=== PATIENT | male | born 1995 | race African-American/Black ===

== ENCOUNTER 2019-11-05 20:24 | Inpatient (IN) | payer SELFPAY ==
--- NOTE | 2019-11-05 21:17 | ER Document Report ---
ED Medical Screen (RME) - General Chief Complaint: Constipation Stated Complaint: CONSTIPATION,VOMITING Time Seen by Provider: 11/05/19 21:08 Notes: Patient is an 23-year-old male who presents emergency department with a chief complaint of constipation and abdominal pain. For the past few days he has had some abdominal pain in his entire abdomen. Patient has also been vomiting. He was vomiting in the waiting room and then he developed some chest pain. Patient is an everyday drinker. He admits to some tarry stools recently. Patient also states that he sometimes has hematemesis, but this has been going on for the past 6 months. Exam: Tender mid to left upper abdomen. I have greeted and performed a rapid initial assessment of this patient. A comprehensive ED assessment and evaluation of the patient, analysis of test results and completion of medical decision making process will be conducted by an additional ED providers. TRAVEL OUTSIDE OF THE [place] IN LAST 30 DAYS: No - Related Data Allergies/Adverse Reactions: No Known Allergies Allergy (Unverified 11/05/19 21:14) Home Medications: none Past Medical History - Social History Chew tobacco use (# tins/day): No Frequency of alcohol use: daily Drug Abuse: Marijuana - Immunizations Hx Diphtheria, Pertussis, Tetanus Vaccination: Yes Physical Exam - Vital signs Vitals: Temp Pulse Resp BP Pulse Ox 97.7 F 108 H 20 156/112 H 96 11/05/19 20:38 11/05/19 20:38 11/05/19 20:38 11/05/19 20:38 11/05/19 20:38 Course - Vital Signs Vital signs: Temp Pulse Resp BP Pulse Ox 97.7 F 108 H 20 156/112 H 96 11/05/19 21:09 11/05/19 21:09 11/05/19 21:09 11/05/19 21:09 11/05/19 21:09
--- NOTE | 2019-11-05 22:11 | RADIOLOGY REPORT (SQ) ---
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 Constipation. COMPARISON: None. FINDINGS: The cardiomediastinal silhouette is within normal limits. No focal consolidation, pleural effusion, or pneumothorax. No acute bony findings are seen. There is a nonobstructive bowel gas pattern. IMPRESSION: 1. No evidence of acute cardiopulmonary disease. 2. Unremarkable bowel gas pattern.
--- NOTE | 2019-11-05 22:12 | RADIOLOGY REPORT (SQ) ---
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 Constipation. COMPARISON: None. FINDINGS: The cardiomediastinal silhouette is within normal limits. No focal consolidation, pleural effusion, or pneumothorax. No acute bony findings are seen. There is a nonobstructive bowel gas pattern. IMPRESSION: 1. No evidence of acute cardiopulmonary disease. 2. Unremarkable bowel gas pattern.
[2019-11-05] MEDS ORDERED: ONDANSETRON HCL INJ/PF 4 MG/2 ML SDV IV ONE (22:35)
[2019-11-05 22:50] LABS: INTERNATIONAL RATION (INR) 1.27
[2019-11-05 22:51] LABS: PARTIAL THROMBOPLASTIN TIME 29.2 SEC (23.5-35.8)
[2019-11-05 22:54] LABS: ABSOLUTE BASOPHILS # (AUTO) 0.1 10^3/uL (0.0-0.2); ABSOLUTE LYMPHOCYTES (AUTO) 2.4 10^3/uL (0.5-4.7); ABSOLUTE MONOCYTES (AUTO) 0.5 10^3/uL (0.1-1.4); ABSOLUTE NEUT (AUTO) 16.5 10^3/uL (1.7-8.2); BASOPHILS % (AUTO) 0.4 % (0-2); HEMATOCRIT 51.3 % (37.9-51.0); HEMOGLOBIN 17.2 g/dL (13.5-17.0); LYMPHOCYTES % (AUTO) 12.4 % (13-45); MEAN CORPUSCULAR HEMOGLOBIN 30.1 pg (27.0-33.4); MEAN CORPUSCULAR HGB CONC 33.5 g/dL (32.0-36.0); MEAN CORPUSCULAR VOLUME 90 fl (80-97); MONOCYTES % (AUTO) 2.6 % (3-13); PLATELET COUNT 258 10^3/uL (150-450); RED BLOOD COUNT 5.69 10^6/uL (4.35-5.55); RED CELL DISTRIBUTION WIDTH 14.6 % (11.5-14.0); SEGMENTED NEUTROPHILS % (AUTO) 84.6 % (42-78); TOTAL CELLS COUNTED % (AUTO) 100 %; WHITE BLOOD COUNT 19.5 10^3/uL (4.0-10.5)
[2019-11-05 23:08] LABS: ALBUMIN 5.1 g/dL (3.5-5.0); ALKALINE PHOSPHATASE 149 U/L (38-126); ASPARTATE AMINO TRANSFERASE 188 U/L (17-59); BILIRUBIN,DIRECT 0.4 mg/dL (0.0-0.4); BILIRUBIN,TOTAL 0.9 mg/dL (0.2-1.3); BLOOD UREA NITROGEN 11 mg/dL (7-20); CALCIUM 9.8 mg/dL (8.4-10.2); CARBON DIOXIDE 18 mmol/L (22-30); CHLORIDE 105 mmol/L (98-107); CREATINE KINASE 734 U/L (55-170); GLUCOSE 136 mg/dL (75-110); POTASSIUM 3.9 mmol/L (3.6-5.0)
[2019-11-05 23:18] LABS: ANION GAP 23 (5-19)
--- NOTE | 2019-11-06 01:19 | ER Document Report ---
ED GI/ - General Chief Complaint: Abdominal Pain Stated Complaint: Abdominal pain Time Seen by Provider: 11/05/19 21:08 Notes: Patient is a 23-year-old male that comes emergency department for chief complaints of 3 days of worsening pain in his abdomen and multiple episodes of vomiting. He states pain is mainly in the left upper abdomen but also is generally. He states he saw trace blood occasionally in his vomit but not the last time he vomited. He denies blood in the stool. He denies fever. He denies any abdominal surgeries or daily medications. He admits to very frequent alcohol, last alcohol was at noon today. He states that he does get withdrawals but he denies seizures. He smokes cigarettes, occasionally smokes marijuana, denies recreational drugs. He denies medical history otherwise. TRAVEL OUTSIDE OF THE [place] IN LAST 30 DAYS: No - Related Data Allergies/Adverse Reactions: No Known Allergies Allergy (Unverified 11/05/19 21:14) Home Medications: none Past Medical History - General Information source: Patient - Social History Smoking Status: Current Every Day Smoker Chew tobacco use (# tins/day): No Frequency of alcohol use: Heavy Drug Abuse: Marijuana Lives with: Alone Family History: None Patient has suicidal ideation: No Patient has homicidal ideation: No - Immunizations Hx Diphtheria, Pertussis, Tetanus Vaccination: Yes Review of Systems - Review of Systems Constitutional: No symptoms reported EENT: No symptoms reported Cardiovascular: No symptoms reported Respiratory: No symptoms reported Gastrointestinal: See HPI Genitourinary: No symptoms reported Male Genitourinary: No symptoms reported Musculoskeletal: No symptoms reported Skin: No symptoms reported Hematologic/Lymphatic: No symptoms reported Neurological/Psychological: No symptoms reported Physical Exam - Vital signs Vitals: Temp Pulse Resp BP Pulse Ox 97.7 F 108 H 20 156/112 H 96 11/05/19 20:38 11/05/19 20:38 11/05/19 20:38 11/05/19 20:38 11/05/19 20:38 - Notes Notes: GENERAL: Patient appears worn out and uncomfortable, mild distress HEAD: Normocephalic, atraumatic. EYES: Pupils equal, round, and reactive to light. Extraocular movements intact. ENT: Oral mucosa parched, tongue midline. Oropharynx unremarkable. Airway patent. NECK: Full range of motion. Supple. Trachea midline. LUNGS: Clear to auscultation bilaterally, no wheezes, rales, or rhonchi. No respiratory distress. HEART: Tachycardia, normal rhythm, no murmur ABDOMEN: Tender especially in the epigastric and left lower quadrant. Mildly tender otherwise. No rebound tenderness noted. GENITOURINARY: Deferred EXTREMITIES: Moves all 4 extremities spontaneously. No edema, normal radial and dorsalis pedis pulses bilaterally. No cyanosis. BACK: no cervical, thoracic, lumbar midline tenderness. No saddle anesthesia, normal distal neurovascular exam. Moves all extremities in full range of motion. NEUROLOGICAL: Alert and oriented x3. Normal speech. Cranial nerves II through XII grossly intact. PSYCH: Normal affect, normal mood. SKIN: Warm, dry, normal turgor. No rashes or lesions noted. Course - Re-evaluation Re-evalutation: Patient is uncomfortable appearing, very dry mucous membranes, tachycardic, a lot of pain in the upper abdomen especially on the left side, mild pain generally. No CVA tenderness. Patient tells me he has alcohol dependence. I did review labs from triage and this shows leukocytosis at 19,000 with elevation of neutrophils but no bandemia. Chemistry nonspecific with slightly elevated LFTs but nonspecific bilirubin. I added a lipase and this was over 3500. Urinalysis still pending, he has been given IV fluids and pain/nausea medication. He is much more comfortable in appearance on reevaluation but is still hypertensive and tachycardic. KUB nonspecific, ultrasound without concerning findings. Clinical picture is consistent with alcoholic pancreatitis. I discussed with patient. He is having difficulty tolerating p.o., in addition to this patient states that if he does not go home and drink he will start withdrawing. Clinical picture is complicated by the fact that if he goes home and drinks to avoid withdrawing he will worsen with his pancreatitis. Suspect patient will require admission. Discussed this with patient, he is very agreeable with this. He states he needs help in regards to alcohol. Discussed with Dr. Youssef, hospitalist, he requests CT of the abdomen to rule out concerning or surgical pathology. This was performed and shows acute pancreatitis. Discussed with him again, patient accepted to telemetry full admission. - Vital Signs Vital signs: Temp Pulse Resp BP Pulse Ox 98.4 F 116 H 22 H 171/98 H 93 11/06/19 05:30 11/06/19 01:25 11/06/19 06:31 11/06/19 06:31 11/06/19 06:31 - Laboratory Result Diagrams: 11/05/19 22:10 11/05/19 22:10 Laboratory results interpreted by me: 11/05/19 11/05/19 11/05/19 22:10 22:10 22:10 WBC 19.5 H RBC 5.69 H Hgb 17.2 H Hct 51.3 H RDW 14.6 H Lymph % (Auto) 12.4 L [place] % (Auto) 2.6 L Absolute Neuts (auto) 16.5 H Seg Neutrophils % 84.6 H PT 16.0 H Sodium 146.3 H Carbon Dioxide 18 L Anion Gap 23 H Glucose 136 H Phosphorus AST 188 H Alkaline Phosphatase 149 H Creatine Kinase 734 H Total Protein 9.0 H Albumin 5.1 H Lipase Urine Ketones Urine Blood 11/05/19 11/05/19 11/06/19 22:10 22:10 04:54 WBC RBC Hgb Hct RDW Lymph % (Auto) [place] % (Auto) Absolute Neuts (auto) Seg Neutrophils % PT Sodium Carbon Dioxide Anion Gap Glucose Phosphorus 4.6 H AST Alkaline Phosphatase Creatine Kinase Total Protein Albumin Lipase 3615.7 H Urine Ketones 20 H Urine Blood SMALL H Discharge - Discharge Clinical Impression: Acute pancreatitis Qualifiers: Pancreatitis type: other Acute pancreatitis complication: unspecified Qualified Code(s): K85.80 - Other acute pancreatitis without necrosis or infection Vomiting Qualifiers: Vomiting type: unspecified Vomiting Intractability: intractable Nausea presence: with nausea Qualified Code(s): R11.2 - Nausea with vomiting, unspecified Alcohol dependence Qualifiers: Substance use status: unspecified alcohol-induced disorder Qualified Code(s): F10.29 - Alcohol dependence with unspecified alcohol-induced disorder Condition: Stable Disposition: ADMITTED INPATIENT Admitting Provider: Mikael (Hospitalist) Unit Admitted: Telemetry
[2019-11-06] MEDS ORDERED: MORPHINE SULFATE 10 MG/ML INJ IV ONE ×2 (01:39→03:38)
[2019-11-06] MEDS ORDERED: RINGERS SOLUTION,LACTATED 1,000 ML IV ONE (01:39)
[2019-11-06] MEDS ORDERED: ONDANSETRON HCL INJ/PF 4 MG/2 ML SDV IV ONE (01:39)
--- NOTE | 2019-11-06 03:32 | RADIOLOGY REPORT (SQ) ---
CLINICAL HISTORY: upper abd pain, vomiting, elevated lipase COMPARISON: None. 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 Portal vein is patent. Gallbladder is normally distended without wall thickening, gallstones or pericholecystic fluid. Common bile that measures 3 mm. Right kidney measures 11.3 cm. IMPRESSION: Hepatomegaly.
--- NOTE | 2019-11-06 05:19 | RADIOLOGY REPORT (SQ) ---
CT abdomen and pelvis with contrast on 11/06/2019 at 4:28 AM CLINICAL INDICATION: Pancreatitis, leukocytosis, vomiting, generalized abdominal pain TECHNIQUE: Multiple axial images are obtained throughout the abdomen and pelvis following the administration of IV contrast, 100 mL of Omnipaque 350 contrast was administered intravenously without complication. This exam was performed according to our departmental dose-optimization program, which includes automated exposure control, adjustment of the mA and/or kV according to patient size and/or use of iterative reconstruction technique. Total DLP is 1708.1 mGy*cm. COMPARISON: None FINDINGS: Abdomen: The lung bases are clear. There is fatty infiltration of the liver. There is peripancreatic fluid and stranding consistent with acute pancreatitis. There is adjacent inflammation around the duodenum as well. No complication of pancreatitis is noted at this time. The solid abdominal organs are otherwise unremarkable. There is no abdominal adenopathy. There is no free air within the abdomen. The abdominal portion of the GI tract is unremarkable. Pelvis: Small amount of free fluid is noted in the pelvis that is likely related to the pancreatitis. There is no pelvic adenopathy. The pelvic portion of the GI tract including the appendix is unremarkable. No bony abnormality is noted. IMPRESSION: 1. Findings consistent with acute pancreatitis without definite complication of pancreatitis noted. 2. Fatty infiltration of the liver.
[2019-11-06] MEDS ORDERED: NORMAL SALINE 1000 ML 1,000 ML IV ONE (05:36)
[2019-11-06 05:42] LABS: APPEARANCE,URINE CLEAR; BILIRUBIN,URINE NEGATIVE (NEGATIVE); COLOR,URINE YELLOW; GLUCOSE, URINE NEGATIVE (NEGATIVE); KETONES,URINE 20 mg/dL (NEGATIVE); LEUKOCYTE ESTERASE,URINE NEGATIVE (NEGATIVE); NITRITE,URINE NEGATIVE (NEGATIVE); PROTEIN,URINE NEGATIVE (NEGATIVE); URINE SPECIFIC GRAVITY 1.046; UROBILINOGEN,URINE NEGATIVE mg/dL (<2.0)
[2019-11-06 06:00] LABS: URINE AMPHETAMINES SCREEN NEGATIVE; URINE BARBITURATES SCREEN NEGATIVE; URINE BENZODIAZEPINES SCREEN NEGATIVE; URINE COCAINE SCREEN NEGATIVE; URINE MARIJUANA (THC) SCREEN NEGATIVE; URINE METHADONE SCREEN NEGATIVE; URINE PHENCYCLIDINE SCREEN NEGATIVE
[2019-11-06] MEDS ORDERED: LORAZEPAM INJ 2 MG/1 ML VIAL IV PRN ×3 (06:28→13:23)
[2019-11-06] MEDS ORDERED: MAG HYDROX/AL HYDROX/SIMETH SUSP 30 ML UDCUP PO PRN (06:29)
[2019-11-06] MEDS ORDERED: PROMETHAZINE HCL INJ 25 MG/1 ML VIAL IV PRN (06:29)
[2019-11-06] MEDS ORDERED: GLUCAGON,HUMAN RECOMB 1 MG INJ SUBCUT PRN (06:29)
[2019-11-06] MEDS ORDERED: DEXTROSE 40% GEL 15 GM TUBE PO PRN ×2 (06:29)
[2019-11-06] MEDS ORDERED: DEXTROSE 50%-WATER 25 GM/50 ML DISP.SYRIN IV PRN ×2 (06:29)
[2019-11-06] MEDS ORDERED: IPRATROPIUM/ALBUTEROL 0.5-2.5 MG/3 ML AMPUL NEB PRN (06:29)
[2019-11-06] MEDS ORDERED: ONDANSETRON HCL INJ/PF 4 MG/2 ML SDV IV PRN (06:29)
--- NOTE | 2019-11-06 06:37 | PDOC H&P ---
History of Present Illness Admission Date/PCP: 11/06/19 05:47 History of Present Illness: ANUPAMA CAMERON is a 23 year old male Social History Smoking Status: Current Every Day Smoker Electronic Cigarette use?: No Family History Family History: Other - Unknown Parental Family History Reviewed: Yes Children Family History Reviewed: Yes Sibling(s) Family History Reviewed.: Yes Medication/Allergy Home Medications: Docusate Sodium [Colace 100 mg Capsule] 100 mg PO DAILY #30 capsule 01/02/15 Hydrocodone Bit/Acetaminophen [Hydrocodon-Acetaminophen 5-325] 1 each PO Q6 #30 tablet 01/02/15 Ibuprofen [Motrin 600 mg Tablet] 600 mg PO Q8HP PRN #90 tablet 01/02/15 Allergies/Adverse Reactions: No Known Allergies Allergy (Unverified 11/05/19 21:14) Physical Exam Vital Signs: Temp Pulse Resp BP Pulse Ox 98.4 F 116 H 16 151/97 H 95 11/06/19 05:30 11/06/19 01:25 11/06/19 05:31 11/06/19 05:31 11/06/19 05:31 Intake & Output 11/04/19 11/05/19 11/06/19 11:59 11:59 11:59 Intake Total 1000 Balance 1000 Weight 97.522 kg Results Laboratory Results: 11/05/19 22:10 11/05/19 22:10 11/05/19 11/05/19 11/05/19 22:10 22:10 22:10 WBC 19.5 H RBC 5.69 H Hgb 17.2 H Hct 51.3 H MCV 90 MCH 30.1 MCHC 33.5 RDW 14.6 H Plt Count 258 Seg Neutrophils % 84.6 H Sodium 146.3 H Potassium 3.9 Chloride 105 Carbon Dioxide 18 L Anion Gap 23 H BUN 11 Creatinine 1.25 Est GFR ( Amer) > 60 Glucose 136 H Calcium 9.8 Total Bilirubin 0.9 AST 188 H Alkaline Phosphatase 149 H Total Protein 9.0 H Albumin 5.1 H Lipase Urine Color Urine Appearance Urine pH Ur Specific [place] Urine Protein Urine Glucose (UA) Urine Ketones Urine Blood Urine Nitrite Ur Leukocyte Esterase Urine WBC (Auto) Blood Type O POSITIVE Antibody Screen NEGATIVE 11/05/19 11/06/19 22:10 04:54 WBC RBC Hgb Hct MCV MCH MCHC RDW Plt Count Seg Neutrophils % Sodium Potassium Chloride Carbon Dioxide Anion Gap BUN Creatinine Est GFR ( Amer) Glucose Calcium Total Bilirubin AST Alkaline Phosphatase Total Protein Albumin Lipase 3615.7 H Urine Color YELLOW Urine Appearance CLEAR Urine pH 5.0 Ur Specific [place] 1.046 Urine Protein NEGATIVE Urine Glucose (UA) NEGATIVE Urine Ketones 20 H Urine Blood SMALL H Urine Nitrite NEGATIVE Ur Leukocyte Esterase NEGATIVE Urine WBC (Auto) 0 Blood Type Antibody Screen 11/05/19 22:10 Creatine Kinase 734 H Impressions: Chest X-Ray 11/05/19 21:14 IMPRESSION: 1. No evidence of acute cardiopulmonary disease. 2. Unremarkable bowel gas pattern. KUB X-Ray 11/05/19 21:14 IMPRESSION: 1. No evidence of acute cardiopulmonary disease. 2. Unremarkable bowel gas pattern. Abdomen Ultrasound 11/06/19 02:10 IMPRESSION: Hepatomegaly. Abdomen/Pelvis CT 11/06/19 04:13 IMPRESSION: 1. Findings consistent with acute pancreatitis without definite complication of pancreatitis noted. 2. Fatty infiltration of the liver. Assessment and Plan - Diagnosis (1) Depression Is this a current diagnosis for this admission?: Yes Plan: Trial Paxil (2) Fatty liver, alcoholic Is this a current diagnosis for this admission?: Yes Plan: Alcohol cessation (3) Acute pancreatitis Qualifiers: Pancreatitis type: other Acute pancreatitis complication: unspecified Qualified Code(s): K85.80 - Other acute pancreatitis without necrosis or infection Is this a current diagnosis for this admission?: Yes Plan: Secondary to alcoholism, alcohol cessation, bowel rest, hydration, symptomatic management, follow-up chemistry. Trial p.o. clear liquid diet with no longer requesting narcotic analgesia. Advance diet as tolerated. (4) Alcohol dependence Qualifiers: Substance use status: unspecified alcohol-induced disorder Qualified Code(s): F10.29 - Alcohol dependence with unspecified alcohol-induced disorder Is this a current diagnosis for this admission?: Yes Plan: Anticipate withdrawal, thiamine, folate, Valium and Ativan as needed, discharge planning for rehab (5) Vomiting Qualifiers: Vomiting type: unspecified Vomiting Intractability: intractable Nausea presence: with nausea Qualified Code(s): R11.2 - Nausea with vomiting, unspecified Is this a current diagnosis for this admission?: Yes Plan: Secondary to #1, symptomatic management - Time Time Spent with patient: 25-34 minutes - Inpatient Certification Medical Necessity: Need Close Monitoring Due to Risk of Patient Decompensation
[2019-11-06] MEDS: KETOROLAC TROMETHAMINE INJ/PF 30 MG/1 ML SDV IV PRN ×2 (06:55→13:55)
[2019-11-06] MEDS ORDERED: DIAZEPAM 5 MG TABLET PO ONE (07:00)
[2019-11-06] MEDS ORDERED: THIAMINE HCL 100 MG, FOLIC ACID 1 MG in NORMAL SALINE 250 ML IV ONE (08:00)
[2019-11-06] MEDS: NIFEDIPINE 30 MG TAB.ER.24 PO SCH ×2 (10:38→10:41)
[2019-11-06] MEDS: PAROXETINE HCL 20 MG TABLET PO SCH (10:39)
--- NOTE | 2019-11-06 13:01 | EKG REPORT ---
SEVERITY:- ABNORMAL ECG - SINUS TACHYCARDIA NONSPECIFIC T ABNORMALITIES, DIFFUSE LEADS : Confirmed by: Kimberly Morris MD 06-Nov-2019 13:00:54
--- NOTE | 2019-11-06 13:46 | PSYCHOLOGICAL NOTE ---
Psych Note - Psych Note Date seen by psych provider: 11/06/19 Time seen by psych provider: 09:45 Psych Note: Reason for consult: Depression, not on meds; Alcohol Abuse Patient reports a chronic history of alcohol abuse. Patient states he began drin melony at age 18 and has not stopped. Patient reports drinking every day for 6 months. Patient is experiencing psychosocial stressors related to divorce and finances. Patient states denies suicidal and homicidal ideations. Patient states he received inpatient substance abuse treatment in 2018. Patient states current relapse is due to contentious divorce and a bad fight with my ex. Patient states he is a . Patient denies combat related trauma. Patient denies childhood trauma. Patient requests inpatient alcohol treatment at discharge. Patient reports receiving services at the [facility]. Patient states he is in the process of moving to [place], [place]. Patient is alert and oriented to person, place, time and circumstance. Mood is normal with congruent affect. Patient is in pain due to a medical condition that influences engagement. Patient denies suicidal and homicidal ideations. Delusions are absent and behavior is congruent with an intact reality based presentation (i.e.: organized and linear through processes). There is no observed behavior that suggests patient is responding to internal stimuli. Patient denies current auditory and visual hallucinations. Eye contact is appropriate. Conversational speech is within normal rate, tone, and prosody. Intellectual ability appears to be within average range. Attention and concentration are good. Insight, judgment and impulse control are currently poor. DSM Diagnosis: Alcohol Use Disorder Medication recommendations per [facility] contracted psychiatrist Dr. Ella PELAYO is as follows: Effexor 37.5MG, twice a day Buspar 5MG, twice a day Impression/Plan: Patient is cleared from acute psychiatric services. Patient does not meet IVC criteria per [place] GS 122C. Patient denies suicidal and homicidal ideations. There is no observed behavior that suggests patient is responding to internal stimuli. Patient denies current auditory and visual hallucinations. Patient is being admitted to hospital for medical condition. Please re-consult at discharge if further services are needed. Patient states [facility] receives [facility], however services could not be verified by ID. Dr. Kennedy was consulted on the care and management of this patient; attending physician is in agreement with recommendations and disposition.
[2019-11-06] MEDS: HEPARIN SOD (PORCINE) 5,000 UNIT/ML 1 ML VIAL SUBCUT SCH ×2 (13:55→21:31)
[2019-11-06] MEDS: BUSPIRONE HCL 10 MG TABLET PO SCH ×2 (13:56→21:31)
[2019-11-06] MEDS: DIAZEPAM 5 MG TABLET PO SCH ×2 (13:57→21:31)
[2019-11-06] MEDS: NORMAL SALINE 1000 ML 1,000 ML IV PRN ×2 (13:58→21:31)
[2019-11-06] MEDS ORDERED: DIAZEPAM 5 MG TABLET PO SCH (14:00)
[2019-11-06] MEDS: VENLAFAXINE HCL 37.5 MG CAP.SR.24H PO SCH ×2 (14:11→21:31)
[2019-11-06] MEDS ORDERED: NIFEDIPINE 10 MG CAPSULE PO ONE (14:30)
[2019-11-06] MEDS ORDERED: NORMAL SALINE 1000 ML 1,000 ML IV PRN (16:16)
[2019-11-06] MEDS ORDERED: LABETALOL HCL INJ 20 MG/4 ML DISP.SYRIN IV ONE (18:20)
[2019-11-06] MEDS ORDERED: INFLUENZA QUAD (6MOS+) 2019-20 VAC 0.5 ML SYR IM ONE (20:02)
--- NOTE | 2019-11-06 23:58 | EKG REPORT ---
SEVERITY:- ABNORMAL ECG - SINUS TACHYCARDIA NONSPECIFIC T ABNORMALITIES, DIFFUSE LEADS : Confirmed by: Kimberly Morris MD 06-Nov-2019 23:57:41
[2019-11-07] MEDS: MORPHINE SULFATE 10 MG/ML INJ IV PRN ×3 (00:31→15:42)
[2019-11-07] MEDS: NORMAL SALINE 1000 ML 1,000 ML IV PRN ×5 (01:30→21:50)
[2019-11-07] MEDS: DIAZEPAM 5 MG TABLET PO SCH ×3 (05:22→21:49)
[2019-11-07] MEDS: HEPARIN SOD (PORCINE) 5,000 UNIT/ML 1 ML VIAL SUBCUT SCH ×3 (05:22→21:49)
[2019-11-07 05:40] LABS: ABSOLUTE LYMPHOCYTES (AUTO) 1.7 10^3/uL (0.5-4.7); ABSOLUTE MONOCYTES (AUTO) 0.3 10^3/uL (0.1-1.4); BASOPHILS % (AUTO) 0.3 % (0-2); EOSINOPHILS % (AUTO) 0.1 % (0-6); HEMATOCRIT 43.7 % (37.9-51.0); MEAN CORPUSCULAR HEMOGLOBIN 30.4 pg (27.0-33.4); MEAN CORPUSCULAR HGB CONC 33.9 g/dL (32.0-36.0); MEAN CORPUSCULAR VOLUME 90 fl (80-97); MONOCYTES % (AUTO) 2.7 % (3-13); PLATELET COUNT 139 10^3/uL (150-450); RED BLOOD COUNT 4.88 10^6/uL (4.35-5.55); RED CELL DISTRIBUTION WIDTH 14.1 % (11.5-14.0); SEGMENTED NEUTROPHILS % (AUTO) 83.9 % (42-78); TOTAL CELLS COUNTED % (AUTO) 100 %; WHITE BLOOD COUNT 13.1 10^3/uL (4.0-10.5)
[2019-11-07 05:42] LABS: HEMOGLOBIN 14.8 g/dL (13.5-17.0)
[2019-11-07 05:54] LABS: ALBUMIN 3.8 g/dL (3.5-5.0); ALKALINE PHOSPHATASE 95 U/L (38-126); ANION GAP 12 (5-19); ASPARTATE AMINO TRANSFERASE 81 U/L (17-59); BILIRUBIN,DIRECT 0.5 mg/dL (0.0-0.4); BILIRUBIN,TOTAL 1.9 mg/dL (0.2-1.3); BLOOD UREA NITROGEN 9 mg/dL (7-20); CARBON DIOXIDE 20 mmol/L (22-30); CHLORIDE 105 mmol/L (98-107); GLUCOSE 88 mg/dL (75-110); POTASSIUM 3.6 mmol/L (3.6-5.0); TOTAL PROTEIN 7.3 g/dL (6.3-8.2)
[2019-11-07] MEDS: VENLAFAXINE HCL 37.5 MG CAP.SR.24H PO SCH ×2 (09:26→21:49)
[2019-11-07] MEDS: BUSPIRONE HCL 10 MG TABLET PO SCH ×2 (09:26→21:49)
[2019-11-07] MEDS: NIFEDIPINE 30 MG TAB.ER.24 PO SCH (09:26)
[2019-11-07] MEDS: PAROXETINE HCL 20 MG TABLET PO SCH (09:26)
[2019-11-07] MEDS ORDERED: THIAMINE HCL 100 MG, FOLIC ACID 1 MG in NORMAL SALINE 250 ML IV SCH (10:00)
--- NOTE | 2019-11-07 15:49 | PDOC PROGRESS REPORT ---
Subjective Progress Note for:: 11/07/19 Subjective:: Patient still complaining of generalized abdominal pain but states that he feels a little bit better. Still has a distended abdomen. Reason For Visit: ACUTE PANCREATITIS ALCOHOL WITHDRAW Physical Exam Vital Signs: Temp Pulse Resp BP Pulse Ox 98 F 133 H 14 149/92 H 98 11/07/19 10:00 11/07/19 14:00 11/07/19 10:00 11/07/19 10:00 11/07/19 10:00 Intake & Output 11/06/19 11/07/19 11/08/19 06:59 06:59 06:59 Intake Total 1999 3394.2 1251.2 Output Total 500 Balance 1999 2894.2 1251.2 Weight 97.522 kg 100.4 kg General appearance: PRESENT: no acute distress, cooperative Head exam: PRESENT: normocephalic Respiratory exam: PRESENT: clear to auscultation [place], unlabored. ABSENT: symmetrical, tachypnea, wheezes Cardiovascular exam: PRESENT: +S1, +S2, tachycardia. ABSENT: irregular rhythm, RRR GI/Abdominal exam: PRESENT: distended, firm, normal bowel sounds, tenderness. ABSENT: guarding, rebound, rigid Neurological exam: PRESENT: alert, awake, oriented to person, oriented to place, oriented to time, oriented to situation Psychiatric exam: ABSENT: agitated, anxious Results Laboratory Results: 11/07/19 05:07 11/07/19 05:07 11/07/19 11/07/19 05:07 05:07 WBC 13.1 H RBC 4.88 Hgb 14.8 D Hct 43.7 MCV 90 MCH 30.4 MCHC 33.9 RDW 14.1 H Plt Count 139 L Seg Neutrophils % 83.9 H Sodium 137.3 Potassium 3.6 Chloride 105 Carbon Dioxide 20 L Anion Gap 12 BUN 9 Creatinine 0.84 Est GFR ( Amer) > 60 Glucose 88 Calcium 8.0 L Total Bilirubin 1.9 H AST 81 H Alkaline Phosphatase 95 Total Protein 7.3 Albumin 3.8 11/05/19 22:10 Creatine Kinase 734 H Impressions: Chest X-Ray 11/05/19 21:14 IMPRESSION: 1. No evidence of acute cardiopulmonary disease. 2. Unremarkable bowel gas pattern. KUB X-Ray 11/05/19 21:14 IMPRESSION: 1. No evidence of acute cardiopulmonary disease. 2. Unremarkable bowel gas pattern. Abdomen Ultrasound 11/06/19 02:10 IMPRESSION: Hepatomegaly. Abdomen/Pelvis CT 11/06/19 04:13 IMPRESSION: 1. Findings consistent with acute pancreatitis without definite complication of pancreatitis noted. 2. Fatty infiltration of the liver. Assessment and Plan - Diagnosis (1) Acute pancreatitis Qualifiers: Pancreatitis type: other Acute pancreatitis complication: unspecified Qualified Code(s): K85.80 - Other acute pancreatitis without necrosis or infection Is this a current diagnosis for this admission?: Yes Plan: Secondary to alcoholism Ultrasound not showing any biliary tree obstruction or gallstones CT imaging showing clear findings of acute pancreatitis with small peripancreatic fluid collection and small pelvic fluid Continue with aggressive IV fluids IV Toradol for pain control with morphine for breakthrough pain Maintain n.p.o. for now we will try to escalate diet tomorrow. Abdomen seems distended and mildly tense. I will continue to monitor. Monitor strict I's and O's and renal function. I have reviewed CT abd imaging with the radiologist who states that there is only small amount of fluid in abdomen and distension may be moreso from body habitus. May need to pursue intra-abdominal bladder pressure measurement if abdomen gets more tense. (2) Alcohol dependence Qualifiers: Substance use status: unspecified alcohol-induced disorder Qualified Code(s): F10.29 - Alcohol dependence with unspecified alcohol-induced disorder Is this a current diagnosis for this admission?: Yes Plan: Reported that CIWA overnight with low Continue to monitor for withdrawal. Valium and Ativan as needed. Thiamine, folate, discharge planning for rehab (3) Depression Is this a current diagnosis for this admission?: Yes Plan: Seen by psychiatry Started on Effexor and buspirone (4) Fatty liver, alcoholic Is this a current diagnosis for this admission?: Yes Plan: Liver transaminases improving though bilirubin trending up. Alcohol cessation - Time Time Spent with patient: Less than 15 minutes
[2019-11-08] MEDS: MORPHINE SULFATE 10 MG/ML INJ IV PRN ×3 (00:32→23:06)
[2019-11-08] MEDS: NORMAL SALINE 1000 ML 1,000 ML IV PRN ×5 (01:43→20:47)
[2019-11-08 05:23] LABS: ABSOLUTE BASOPHILS # (AUTO) 0.1 10^3/uL (0.0-0.2); ABSOLUTE LYMPHOCYTES (AUTO) 1.6 10^3/uL (0.5-4.7); ABSOLUTE MONOCYTES (AUTO) 0.7 10^3/uL (0.1-1.4); ABSOLUTE NEUT (AUTO) 11.1 10^3/uL (1.7-8.2); BASOPHILS % (AUTO) 0.8 % (0-2); EOSINOPHILS % (AUTO) 0.2 % (0-6); HEMATOCRIT 43.9 % (37.9-51.0); HEMOGLOBIN 14.9 g/dL (13.5-17.0); LYMPHOCYTES % (AUTO) 11.8 % (13-45); MEAN CORPUSCULAR HEMOGLOBIN 30.2 pg (27.0-33.4); MEAN CORPUSCULAR HGB CONC 33.9 g/dL (32.0-36.0); MEAN CORPUSCULAR VOLUME 89 fl (80-97); MONOCYTES % (AUTO) 5.2 % (3-13); PLATELET COUNT 150 10^3/uL (150-450); RED BLOOD COUNT 4.93 10^6/uL (4.35-5.55); RED CELL DISTRIBUTION WIDTH 14.2 % (11.5-14.0); TOTAL CELLS COUNTED % (AUTO) 100 %; WHITE BLOOD COUNT 13.6 10^3/uL (4.0-10.5)
[2019-11-08 05:41] LABS: ALBUMIN 4.1 g/dL (3.5-5.0); ALKALINE PHOSPHATASE 99 U/L (38-126); ANION GAP 14 (5-19); ASPARTATE AMINO TRANSFERASE 69 U/L (17-59); BILIRUBIN,DIRECT 0.7 mg/dL (0.0-0.4); BILIRUBIN,TOTAL 2.1 mg/dL (0.2-1.3); BLOOD UREA NITROGEN 8 mg/dL (7-20); CALCIUM 8.8 mg/dL (8.4-10.2); CARBON DIOXIDE 22 mmol/L (22-30); CHLORIDE 101 mmol/L (98-107); GLUCOSE 84 mg/dL (75-110); POTASSIUM 3.7 mmol/L (3.6-5.0); TOTAL PROTEIN 7.7 g/dL (6.3-8.2)
[2019-11-08] MEDS: DIAZEPAM 5 MG TABLET PO SCH ×2 (05:45→22:37)
[2019-11-08] MEDS: HEPARIN SOD (PORCINE) 5,000 UNIT/ML 1 ML VIAL SUBCUT SCH ×3 (05:46→22:37)
[2019-11-08] MEDS: BUSPIRONE HCL 10 MG TABLET PO SCH ×2 (09:35→22:37)
[2019-11-08] MEDS: VENLAFAXINE HCL 37.5 MG CAP.SR.24H PO SCH ×2 (09:36→22:43)
[2019-11-08] MEDS: NIFEDIPINE 30 MG TAB.ER.24 PO SCH (09:36)
[2019-11-08] MEDS ORDERED: BISACODYL 5 MG TABEC PO ONE (09:47)
[2019-11-08] MEDS ORDERED: DIAZEPAM 5 MG TABLET PO SCH ×2 (10:00→22:00)
[2019-11-08] MEDS: POLYETHYLENE GLYCOL 3350 POWDER 17 GM/1 PACKET PO PRN (13:35)
--- NOTE | 2019-11-08 13:55 | PDOC PROGRESS REPORT ---
Subjective Progress Note for:: 11/08/19 Subjective:: Patient states that his pain feels better today. Denies any nausea currently. Complains of some constipation and has not had a good bowel movement in the past 2 days. Would like something to help him move his bowels. Reason For Visit: ACUTE PANCREATITIS ALCOHOL WITHDRAW Physical Exam Vital Signs: Temp Pulse Resp BP Pulse Ox 99.4 F 123 H 20 155/92 H 96 11/08/19 08:00 11/08/19 08:00 11/08/19 08:00 11/08/19 08:00 11/08/19 08:00 Intake & Output 11/07/19 11/08/19 11/09/19 06:59 06:59 06:59 Intake Total 3394.2 5222.2 958 Output Total 500 5040 Balance 2894.2 182.2 958 Weight 100.4 kg 101.1 kg General appearance: PRESENT: no acute distress, cooperative Neck exam: ABSENT: JVD Respiratory exam: PRESENT: clear to auscultation darline, symmetrical, unlabored. ABSENT: tachypnea, wheezes Cardiovascular exam: PRESENT: RRR, +S1, +S2, tachycardia. ABSENT: irregular rhythm GI/Abdominal exam: PRESENT: distended, normal bowel sounds, soft, tenderness. ABSENT: guarding, rebound, rigid Extremities exam: ABSENT: pedal edema Neurological exam: PRESENT: alert, awake, oriented to person, oriented to place, oriented to time, oriented to situation Skin exam: PRESENT: other - non-tremulous Results Laboratory Results: 11/08/19 04:52 11/08/19 04:52 11/08/19 11/08/19 11/08/19 04:52 04:52 04:52 WBC 13.6 H RBC 4.93 Hgb 14.9 Hct 43.9 MCV 89 MCH 30.2 MCHC 33.9 RDW 14.2 H Plt Count 150 Seg Neutrophils % 82.0 H Sodium 136.5 L Potassium 3.7 Chloride 101 Carbon Dioxide 22 Anion Gap 14 BUN 8 Creatinine 0.79 Est GFR ( Amer) > 60 Glucose 84 Lactic Acid 0.8 Calcium 8.8 Total Bilirubin 2.1 H AST 69 H Alkaline Phosphatase 99 Total Protein 7.7 Albumin 4.1 11/05/19 22:10 Creatine Kinase 734 H Impressions: Chest X-Ray 11/05/19 21:14 IMPRESSION: 1. No evidence of acute cardiopulmonary disease. 2. Unremarkable bowel gas pattern. KUB X-Ray 11/05/19 21:14 IMPRESSION: 1. No evidence of acute cardiopulmonary disease. 2. Unremarkable bowel gas pattern. Abdomen Ultrasound 11/06/19 02:10 IMPRESSION: Hepatomegaly. Abdomen/Pelvis CT 11/06/19 04:13 IMPRESSION: 1. Findings consistent with acute pancreatitis without definite complication of pancreatitis noted. 2. Fatty infiltration of the liver. Assessment and Plan - Diagnosis (1) Acute pancreatitis Qualifiers: Pancreatitis type: other Acute pancreatitis complication: unspecified Qualified Code(s): K85.80 - Other acute pancreatitis without necrosis or infection Is this a current diagnosis for this admission?: Yes Plan: Secondary to alcoholism Ultrasound not showing any biliary tree obstruction or gallstones CT imaging showing clear findings of acute pancreatitis with small peripancreatic fluid collection and small pelvic fluid Continue with aggressive IV fluids IV morphine as needed Clear liquid diet. Will advance as tolerated. Abdomen seems distended and mildly tense. I will continue to monitor. Renal function looks good with very good urinary output. Negative lactic acid. I have reviewed CT abd imaging with the radiologist who states that there is only small amount of fluid in abdomen and distension may be moreso from body habitus. May need to pursue intra-abdominal bladder pressure measurement if abdomen gets more tense. (2) Alcohol dependence Qualifiers: Substance use status: unspecified alcohol-induced disorder Qualified Code(s): F10.29 - Alcohol dependence with unspecified alcohol-induced disorder Is this a current diagnosis for this admission?: Yes Plan: Weaning of standing Valium while monitoring CIWA score and Ativan as needed. Thiamine, folate, discharge planning sent referrals to [facility] (3) Depression Is this a current diagnosis for this admission?: Yes Plan: Seen by psychiatry Started on Effexor and buspirone (4) Fatty liver, alcoholic Is this a current diagnosis for this admission?: Yes Plan: Liver transaminases improving though bilirubin trending up. Alcohol cessation (5) Hypertension Is this a current diagnosis for this admission?: Yes Plan: Patient states that he has hx of HTN but has not been on antihypertensives. Started on nifedipine Elevated BPs also partly due to pain
[2019-11-08] MEDS: FAMOTIDINE 20 MG TABLET PO SCH ×2 (15:08→22:36)
[2019-11-08] MEDS ORDERED: LORAZEPAM INJ 2 MG/1 ML VIAL IV ONE (19:00)
[2019-11-08] MEDS: MAGNESIUM SULFATE/D5W 1 GM/100 ML RTUPB IV SCH (20:40)
[2019-11-08] MEDS ORDERED: LACTULOSE SYRUP 20 GM/30 ML UDCUP PO ONE (21:15)
--- NOTE | 2019-11-08 23:41 | EKG REPORT ---
SEVERITY:- ABNORMAL ECG - SINUS TACHYCARDIA ABNORMAL T, CONSIDER ISCHEMIA, LATERAL LEADS PROLONGED QT INTERVAL : Confirmed by: Kimberly Morris MD 08-Nov-2019 23:41:28
[2019-11-09] MEDS: MAGNESIUM SULFATE/D5W 1 GM/100 ML RTUPB IV SCH (00:40)
[2019-11-09] MEDS: NORMAL SALINE 1000 ML 1,000 ML IV PRN ×2 (05:09→19:44)
[2019-11-09 05:56] LABS: ABSOLUTE BASOPHILS # (AUTO) 0.1 10^3/uL (0.0-0.2); ABSOLUTE LYMPHOCYTES (AUTO) 1.9 10^3/uL (0.5-4.7); ABSOLUTE MONOCYTES (AUTO) 1.4 10^3/uL (0.1-1.4); ABSOLUTE NEUT (AUTO) 9.9 10^3/uL (1.7-8.2); BASOPHILS % (AUTO) 0.4 % (0-2); EOSINOPHILS % (AUTO) 0.2 % (0-6); HEMATOCRIT 43.2 % (37.9-51.0); HEMOGLOBIN 14.8 g/dL (13.5-17.0); LYMPHOCYTES % (AUTO) 14.6 % (13-45); MEAN CORPUSCULAR HEMOGLOBIN 30.5 pg (27.0-33.4); MEAN CORPUSCULAR HGB CONC 34.2 g/dL (32.0-36.0); MEAN CORPUSCULAR VOLUME 89 fl (80-97); MONOCYTES % (AUTO) 10.2 % (3-13); PLATELET COUNT 189 10^3/uL (150-450); RED BLOOD COUNT 4.85 10^6/uL (4.35-5.55); RED CELL DISTRIBUTION WIDTH 13.5 % (11.5-14.0); SEGMENTED NEUTROPHILS % (AUTO) 74.6 % (42-78); TOTAL CELLS COUNTED % (AUTO) 100 %; WHITE BLOOD COUNT 13.3 10^3/uL (4.0-10.5)
[2019-11-09 06:01] LABS: INTERNATIONAL RATION (INR) 1.12; PARTIAL THROMBOPLASTIN TIME 35.3 SEC (23.5-35.8); PROTHROMBIN TIME 14.5 SEC (11.4-15.4)
[2019-11-09 06:24] LABS: ALBUMIN 3.9 g/dL (3.5-5.0); ALKALINE PHOSPHATASE 115 U/L (38-126); ANION GAP 13 (5-19); ASPARTATE AMINO TRANSFERASE 54 U/L (17-59); BILIRUBIN,DIRECT 0.7 mg/dL (0.0-0.4); BILIRUBIN,TOTAL 1.6 mg/dL (0.2-1.3); BLOOD UREA NITROGEN 7 mg/dL (7-20); CALCIUM 8.7 mg/dL (8.4-10.2); CARBON DIOXIDE 25 mmol/L (22-30); CHLORIDE 98 mmol/L (98-107); GLUCOSE 82 mg/dL (75-110); POTASSIUM 3.1 mmol/L (3.6-5.0); TOTAL PROTEIN 7.3 g/dL (6.3-8.2)
[2019-11-09] MEDS: POLYETHYLENE GLYCOL 3350 POWDER 17 GM/1 PACKET PO PRN (06:25)
[2019-11-09] MEDS: HEPARIN SOD (PORCINE) 5,000 UNIT/ML 1 ML VIAL SUBCUT SCH ×3 (06:37→22:39)
[2019-11-09] MEDS: FAMOTIDINE 20 MG TABLET PO SCH ×2 (10:44→22:38)
[2019-11-09] MEDS: BUSPIRONE HCL 10 MG TABLET PO SCH ×2 (10:44→22:38)
[2019-11-09] MEDS: POTASSIUM CHLORIDE 10 MEQ TABLET.ER PO SCH ×2 (10:44→22:38)
[2019-11-09] MEDS: NIFEDIPINE 30 MG TAB.ER.24 PO SCH (10:44)
[2019-11-09] MEDS: VENLAFAXINE HCL 37.5 MG CAP.SR.24H PO SCH ×2 (10:45→22:40)
[2019-11-09] MEDS: DIAZEPAM 5 MG TABLET PO SCH ×2 (10:45→22:39)
[2019-11-09] MEDS: THIAMINE HCL 100 MG TABLET PO SCH (10:45)
[2019-11-09] MEDS: FOLIC ACID 1 MG TABLET PO SCH (10:45)
[2019-11-09] MEDS: CARVEDILOL 12.5 MG TABLET PO SCH ×2 (14:04→22:39)
--- NOTE | 2019-11-09 16:30 | PDOC PROGRESS REPORT ---
Subjective Progress Note for:: 11/09/19 Subjective:: Pain is improved somewhat. Rates it as a 7 out of 10 right now. Denies any fever or chills. Still does not endorse palpitations. Reason For Visit: ACUTE PANCREATITIS ALCOHOL WITHDRAW Physical Exam Vital Signs: Temp Pulse Resp BP Pulse Ox 98.2 F 130 H 21 H 156/93 H 98 11/09/19 11:59 11/09/19 11:59 11/09/19 11:59 11/09/19 11:59 11/09/19 11:59 Intake & Output 11/08/19 11/09/19 11/10/19 06:59 06:59 06:59 Intake Total 5222.2 3922 Output Total 5040 3300 Balance 182.2 622 Weight 101.1 kg 99.1 kg General appearance: PRESENT: no acute distress, cooperative - alcoholic hepqa Respiratory exam: PRESENT: clear to auscultation darline, symmetrical, unlabored. ABSENT: tachypnea, wheezes Cardiovascular exam: PRESENT: +S1, +S2, tachycardia. ABSENT: diastolic murmur, systolic murmur GI/Abdominal exam: PRESENT: distended, normal bowel sounds, soft, tenderness. ABSENT: firm, guarding, rebound, rigid Neurological exam: PRESENT: alert, awake, oriented to person, oriented to place, oriented to time, oriented to situation Psychiatric exam: ABSENT: agitated, anxious Results Laboratory Results: 11/09/19 03:35 11/09/19 03:35 11/09/19 11/09/19 03:35 03:35 WBC 13.3 H RBC 4.85 Hgb 14.8 Hct 43.2 MCV 89 MCH 30.5 MCHC 34.2 RDW 13.5 Plt Count 189 Seg Neutrophils % 74.6 Sodium 136.2 L Potassium 3.1 L Chloride 98 Carbon Dioxide 25 Anion Gap 13 BUN 7 Creatinine 0.65 Est GFR ( Amer) > 60 Glucose 82 Calcium 8.7 Total Bilirubin 1.6 H AST 54 Alkaline Phosphatase 115 Total Protein 7.3 Albumin 3.9 11/05/19 22:10 Creatine Kinase 734 H Impressions: Chest X-Ray 11/05/19 21:14 IMPRESSION: 1. No evidence of acute cardiopulmonary disease. 2. Unremarkable bowel gas pattern. KUB X-Ray 11/05/19 21:14 IMPRESSION: 1. No evidence of acute cardiopulmonary disease. 2. Unremarkable bowel gas pattern. Abdomen Ultrasound 11/06/19 02:10 IMPRESSION: Hepatomegaly. Abdomen/Pelvis CT 11/06/19 04:13 IMPRESSION: 1. Findings consistent with acute pancreatitis without definite complication of pancreatitis noted. 2. Fatty infiltration of the liver. Assessment and Plan - Diagnosis (1) Acute pancreatitis Qualifiers: Pancreatitis type: other Acute pancreatitis complication: unspecified Qualified Code(s): K85.80 - Other acute pancreatitis without necrosis or infection Is this a current diagnosis for this admission?: Yes Plan: Secondary to alcoholism Ultrasound not showing any biliary tree obstruction or gallstones CT imaging showing clear findings of acute pancreatitis with small la pancreatic fluid collection and small pelvic fluid Continue with IV fluids IV morphine as needed Advance diet as tolerated. Abdomen seems distended and mildly tense. I will continue to monitor. Renal function looks good with very good urinary output. Negative lactic acid. I have reviewed CT abd imaging with the radiologist who states that there is only small amount of fluid in abdomen and distension may be moreso from body habitus. May need to pursue intra-abdominal bladder pressure measurement if abdomen gets more tense. May need repeat CT abd/pelvis tomorrow to reevaluate pancreatitis for potential complications given persistent tachycardia, nausea and leukocytosis (2) Sinus tachycardia Is this a current diagnosis for this admission?: Yes Plan: Heart rate persistently in the 120s occasionally going even higher into 130-140s for some time EKG and tele monitoring only revealing Sinus tachycardia Significant sinus tachycardia has persisted despite controlling likely culprits including at times when pain is well controlled, despite lots of IVF, and despite standing valium doses to help with alcohol withdrawal and CIWA scores have all been low, negative blood cultures. I will start patient on Coreg for management of HTN and to help with tachycardia and may need to repeat CT abd/pelv tomorrow to re-evaluate pancreatitis for complications. (3) Alcohol dependence Qualifiers: Substance use status: unspecified alcohol-induced disorder Qualified Code(s): F10.29 - Alcohol dependence with unspecified alcohol-induced disorder Is this a current diagnosis for this admission?: Yes Plan: Weaning of standing Valium CIWA scores have all been low Ativan as needed. Thiamine, folate, discharge planning sent referrals to [facility] (4) Depression Is this a current diagnosis for this admission?: Yes Plan: Seen by psychiatry Started on Effexor and buspirone (5) Fatty liver, alcoholic Is this a current diagnosis for this admission?: Yes Plan: Liver enzymes downtrending Alcohol cessation (6) Hypertension Is this a current diagnosis for this admission?: Yes Plan: Patient states that he has hx of HTN but has not been on antihypertensives. Started on nifedipine and Coreg May be some component of pain (7) Abdominal pain Is this a current diagnosis for this admission?: Yes Plan: Likely secondary to acute pancreatitis, tender hepatomegaly from alcohol consumption and possibly some component of alcoholic gastritis Pepcid, Maalox and continue treatment for pancreatitis. Will give some carafate to see it helps. - Time Time Spent with patient: 15-24 minutes
[2019-11-09] MEDS: SUCRALFATE 1 GM TABLET PO SCH (18:25)
[2019-11-10] MEDS: ACETAMINOPHEN 325 MG TABLET PO PRN ×2 (05:55→11:04)
[2019-11-10] MEDS: HEPARIN SOD (PORCINE) 5,000 UNIT/ML 1 ML VIAL SUBCUT SCH ×3 (05:55→21:43)
[2019-11-10] MEDS: SUCRALFATE 1 GM TABLET PO SCH ×3 (08:08→17:26)
[2019-11-10] MEDS: NORMAL SALINE 1000 ML 1,000 ML IV PRN (08:10)
[2019-11-10 10:13] LABS: ABSOLUTE EOSINOPHILS # (AUTO) 0.1 10^3/uL (0.0-0.6); ABSOLUTE LYMPHOCYTES (AUTO) 1.8 10^3/uL (0.5-4.7); ABSOLUTE MONOCYTES (AUTO) 1.7 10^3/uL (0.1-1.4); ABSOLUTE NEUT (AUTO) 6.9 10^3/uL (1.7-8.2); BASOPHILS % (AUTO) 0.2 % (0-2); EOSINOPHILS % (AUTO) 0.6 % (0-6); HEMATOCRIT 40.7 % (37.9-51.0); HEMOGLOBIN 14.1 g/dL (13.5-17.0); LYMPHOCYTES % (AUTO) 17.1 % (13-45); MEAN CORPUSCULAR HEMOGLOBIN 30.6 pg (27.0-33.4); MEAN CORPUSCULAR HGB CONC 34.5 g/dL (32.0-36.0); MEAN CORPUSCULAR VOLUME 89 fl (80-97); MONOCYTES % (AUTO) 16.1 % (3-13); PLATELET COUNT 227 10^3/uL (150-450); RED CELL DISTRIBUTION WIDTH 13.9 % (11.5-14.0); TOTAL CELLS COUNTED % (AUTO) 100 %; WHITE BLOOD COUNT 10.5 10^3/uL (4.0-10.5)
[2019-11-10 10:30] LABS: ANION GAP 11 (5-19); BLOOD UREA NITROGEN 9 mg/dL (7-20); CALCIUM 8.9 mg/dL (8.4-10.2); CARBON DIOXIDE 26 mmol/L (22-30); CHLORIDE 98 mmol/L (98-107); GLUCOSE 82 mg/dL (75-110); POTASSIUM 3.4 mmol/L (3.6-5.0)
[2019-11-10] MEDS: VENLAFAXINE HCL 37.5 MG CAP.SR.24H PO SCH ×2 (11:03→21:43)
[2019-11-10] MEDS: FOLIC ACID 1 MG TABLET PO SCH (11:04)
[2019-11-10] MEDS: FAMOTIDINE 20 MG TABLET PO SCH ×2 (11:04→21:43)
[2019-11-10] MEDS: CARVEDILOL 12.5 MG TABLET PO SCH ×2 (11:04→21:43)
[2019-11-10] MEDS: THIAMINE HCL 100 MG TABLET PO SCH (11:05)
[2019-11-10] MEDS: BUSPIRONE HCL 10 MG TABLET PO SCH ×2 (11:05→21:42)
[2019-11-10] MEDS: MORPHINE SULFATE 10 MG/ML INJ IV PRN (12:41)
--- NOTE | 2019-11-10 17:52 | PDOC PROGRESS REPORT ---
Subjective Progress Note for:: 11/10/19 Subjective:: Patient was finally able to tolerate his diet at lunchtime today and at dinnertime. Patient states that abdominal pain has improved significantly. Reason For Visit: ACUTE PANCREATITIS ALCOHOL WITHDRAW Physical Exam Vital Signs: Temp Pulse Resp BP Pulse Ox 98.6 F 103 H 19 137/71 H 97 11/10/19 11:17 11/10/19 11:17 11/10/19 11:17 11/10/19 11:17 11/10/19 11:17 Intake & Output 11/09/19 11/10/19 11/11/19 06:59 06:59 06:59 Intake Total 3922 3788 Output Total 3300 1525 Balance 622 2263 Weight 99.1 kg 98.3 kg General appearance: PRESENT: no acute distress, cooperative Neck exam: ABSENT: JVD Respiratory exam: PRESENT: clear to auscultation darline, symmetrical, unlabored. ABSENT: tachypnea, wheezes Cardiovascular exam: PRESENT: RRR, +S1, +S2. ABSENT: tachycardia GI/Abdominal exam: PRESENT: normal bowel sounds, soft, tenderness. ABSENT: distended, firm, guarding, rebound, rigid Neurological exam: PRESENT: alert, awake, oriented to person, oriented to place, oriented to time, oriented to situation Results Laboratory Results: 11/10/19 09:37 11/10/19 09:37 11/09/19 11/10/19 11/10/19 18:01 09:37 09:37 WBC 10.5 RBC 4.60 Hgb 14.1 Hct 40.7 MCV 89 MCH 30.6 MCHC 34.5 RDW 13.9 Plt Count 227 Seg Neutrophils % 66.0 Sodium 135.4 L Potassium 3.4 L Chloride 98 Carbon Dioxide 26 Anion Gap 11 BUN 9 Creatinine 0.67 Est GFR ( Amer) > 60 Glucose 82 Calcium 8.9 Magnesium 2.4 H Lipase 1777.3 H 11/05/19 22:10 Creatine Kinase 734 H Impressions: Chest X-Ray 11/05/19 21:14 IMPRESSION: 1. No evidence of acute cardiopulmonary disease. 2. Unremarkable bowel gas pattern. KUB X-Ray 11/05/19 21:14 IMPRESSION: 1. No evidence of acute cardiopulmonary disease. 2. Unremarkable bowel gas pattern. Abdomen Ultrasound 11/06/19 02:10 IMPRESSION: Hepatomegaly. Abdomen/Pelvis CT 11/06/19 04:13 IMPRESSION: 1. Findings consistent with acute pancreatitis without definite complication of pancreatitis noted. 2. Fatty infiltration of the liver. Assessment and Plan - Diagnosis (1) Acute pancreatitis Qualifiers: Pancreatitis type: other Acute pancreatitis complication: unspecified Qualified Code(s): K85.80 - Other acute pancreatitis without necrosis or infection Is this a current diagnosis for this admission?: Yes Plan: Secondary to alcoholism Ultrasound not showing any biliary tree obstruction or gallstones CT imaging showing clear findings of acute pancreatitis with small peripancreatic fluid collection and small pelvic fluid Continue with IV fluids IV morphine as needed Advance diet as tolerated. Abdomen seems distended and mildly tense. I will continue to monitor. Renal function looks good with very good urinary output. Negative lactic acid. I have reviewed CT abd imaging with the radiologist who states that there is only small amount of fluid in abdomen and distension may be moreso from body habitus. May need to pursue intra-abdominal bladder pressure measurement if abdomen gets more tense. May need repeat CT abd/pelvis tomorrow to reevaluate pancreatitis for potential complications given persistent tachycardia, nausea and leukocytosis 11/10/2019 Symptoms are finally showing substantial improvement. Leukocytosis is resolved. I will wean his morphine dose. Continue Tylenol. Now tolerating diet. Hopefully by tomorrow patient should be ready for discharge if no turnarounds. No need to pursue further imaging at this time. (2) Sinus tachycardia Is this a current diagnosis for this admission?: Yes Plan: Heart rate persistently in the 120s occasionally going even higher into 130-140s for some time EKG and tele monitoring only revealing Sinus tachycardia Significant sinus tachycardia has persisted despite controlling likely culprits including at times when pain is well controlled, despite lots of IVF, and despite standing valium doses to help with alcohol withdrawal and CIWA scores have all been low, negative blood cultures. I will start patient on Coreg for management of HTN and to help with tachycardia and may need to repeat CT abd/pelv tomorrow to re-evaluate pancreatitis for complications. 11/10/2019 patient sinus tachycardia has improved significantly on Coreg and his blood pressure is better controlled. (3) Alcohol dependence Qualifiers: Substance use status: unspecified alcohol-induced disorder Qualified Code(s): F10.29 - Alcohol dependence with unspecified alcohol-induced disorder Is this a current diagnosis for this admission?: Yes Plan: Weaning off standing Valium CIWA scores have all been low Ativan as needed. Thiamine, folate, discharge planning sent referrals to [facility] 11/10/2019 patient has had low Ciwa scores and has not required any PRN Ativan doses. No evidence of withdrawal at this time. Will dc ativan prn orders. (4) Depression Is this a current diagnosis for this admission?: Yes Plan: Seen by psychiatry Started on Effexor and buspirone (5) Fatty liver, alcoholic Is this a current diagnosis for this admission?: Yes Plan: Liver enzymes downtrending Alcohol cessation (6) Hypertension Is this a current diagnosis for this admission?: Yes Plan: Patient states that he has hx of HTN but has not been on antihypertensives. Started on nifedipine and Coreg May be some component of pain 11/10/2019 better control has been achieved on Coreg alone. Nifedipine was discontinued this morning. (7) Abdominal pain Qualifiers: Abdominal location: epigastric Qualified Code(s): R10.13 - Epigastric pain Is this a current diagnosis for this admission?: Yes Plan: Likely secondary to acute pancreatitis, tender hepatomegaly from alcohol consumption and possibly some component of alcoholic gastritis Pepcid, Maalox and continue treatment for pancreatitis. Will give some carafate to see it helps. 11/10 improved on regimen - Time Time Spent with patient: 15-24 minutes
[2019-11-10] MEDS: POTASSIUM CHLORIDE 10 MEQ TABLET.ER PO SCH (18:23)
[2019-11-11] MEDS: POTASSIUM CHLORIDE 10 MEQ TABLET.ER PO SCH (01:18)
[2019-11-11 04:52] LABS: HEMATOCRIT 38.9 % (37.9-51.0); HEMOGLOBIN 13.4 g/dL (13.5-17.0); MEAN CORPUSCULAR HEMOGLOBIN 30.4 pg (27.0-33.4); MEAN CORPUSCULAR HGB CONC 34.4 g/dL (32.0-36.0); MEAN CORPUSCULAR VOLUME 88 fl (80-97); PLATELET COUNT 230 10^3/uL (150-450); RED CELL DISTRIBUTION WIDTH 14.1 % (11.5-14.0); WHITE BLOOD COUNT 9.8 10^3/uL (4.0-10.5)
[2019-11-11 05:14] LABS: ANION GAP 12 (5-19); BLOOD UREA NITROGEN 8 mg/dL (7-20); CARBON DIOXIDE 22 mmol/L (22-30); CHLORIDE 103 mmol/L (98-107); GLUCOSE 91 mg/dL (75-110); POTASSIUM 3.5 mmol/L (3.6-5.0)
[2019-11-11] MEDS: HEPARIN SOD (PORCINE) 5,000 UNIT/ML 1 ML VIAL SUBCUT SCH ×3 (06:41→21:46)
[2019-11-11] MEDS: HYDRALAZINE HCL INJ/PF 20 MG/1 ML SDV IV PRN ×3 (06:41→20:40)
[2019-11-11] MEDS: SUCRALFATE 1 GM TABLET PO SCH ×3 (08:05→16:51)
[2019-11-11] MEDS: NORMAL SALINE 1000 ML 1,000 ML IV PRN ×2 (09:15→20:25)
[2019-11-11] MEDS: CARVEDILOL 12.5 MG TABLET PO SCH ×2 (09:44→21:46)
[2019-11-11] MEDS: THIAMINE HCL 100 MG TABLET PO SCH (09:45)
[2019-11-11] MEDS: FOLIC ACID 1 MG TABLET PO SCH (09:45)
[2019-11-11] MEDS: VENLAFAXINE HCL 37.5 MG CAP.SR.24H PO SCH ×2 (09:45→21:46)
[2019-11-11] MEDS: BUSPIRONE HCL 10 MG TABLET PO SCH ×2 (09:45→21:47)
[2019-11-11] MEDS: FAMOTIDINE 20 MG TABLET PO SCH ×2 (09:45→21:46)
[2019-11-11] MEDS: MORPHINE SULFATE 10 MG/ML INJ IV PRN ×2 (12:12→20:40)
[2019-11-11] MEDS ORDERED: POTASSIUM CHLORIDE 10 MEQ TABLET.ER PO ONE (14:54)
[2019-11-11] MEDS ORDERED: HYDROCHLOROTHIAZIDE 12.5 MG TABLET PO ONE (15:07)
--- NOTE | 2019-11-11 15:09 | PDOC PROGRESS REPORT ---
Subjective Progress Note for:: 11/11/19 Subjective:: Mother is visiting. Abdo bloating today. Epigastric pain. No appetite Reason For Visit: ACUTE PANCREATITIS ALCOHOL WITHDRAW Physical Exam Vital Signs: Temp Pulse Resp BP Pulse Ox 99.5 F 99 16 150/107 H 100 11/11/19 11:39 11/11/19 14:00 11/11/19 11:39 11/11/19 11:39 11/11/19 11:39 Intake & Output 11/10/19 11/11/19 11/12/19 06:59 06:59 06:59 Intake Total 3788 3487 Output Total 1525 2775 Balance 2263 712 Weight 98.3 kg 100.2 kg Results Laboratory Results: 11/11/19 03:58 11/11/19 03:58 11/11/19 11/11/19 03:58 03:58 WBC 9.8 RBC 4.40 Hgb 13.4 L Hct 38.9 MCV 88 MCH 30.4 MCHC 34.4 RDW 14.1 H Plt Count 230 Sodium 137.0 Potassium 3.5 L Chloride 103 Carbon Dioxide 22 Anion Gap 12 BUN 8 Creatinine 0.54 Est GFR ( Amer) > 60 Glucose 91 Calcium 9.0 11/05/19 22:10 Creatine Kinase 734 H Impressions: Chest X-Ray 11/05/19 21:14 IMPRESSION: 1. No evidence of acute cardiopulmonary disease. 2. Unremarkable bowel gas pattern. KUB X-Ray 11/05/19 21:14 IMPRESSION: 1. No evidence of acute cardiopulmonary disease. 2. Unremarkable bowel gas pattern. Abdomen Ultrasound 11/06/19 02:10 IMPRESSION: Hepatomegaly. Abdomen/Pelvis CT 11/06/19 04:13 IMPRESSION: 1. Findings consistent with acute pancreatitis without definite complication of pancreatitis noted. 2. Fatty infiltration of the liver.
[2019-11-12] MEDS: HEPARIN SOD (PORCINE) 5,000 UNIT/ML 1 ML VIAL SUBCUT SCH ×2 (05:40→14:43)
[2019-11-12] MEDS: CARVEDILOL 12.5 MG TABLET PO SCH (09:25)
[2019-11-12] MEDS: SUCRALFATE 1 GM TABLET PO SCH ×3 (09:25→16:05)
[2019-11-12] MEDS: THIAMINE HCL 100 MG TABLET PO SCH (09:25)
[2019-11-12] MEDS: VENLAFAXINE HCL 37.5 MG CAP.SR.24H PO SCH (09:25)
[2019-11-12] MEDS: FAMOTIDINE 20 MG TABLET PO SCH (09:26)
[2019-11-12] MEDS: BUSPIRONE HCL 10 MG TABLET PO SCH (09:27)
[2019-11-12] MEDS: FOLIC ACID 1 MG TABLET PO SCH (09:27)
[2019-11-12] MEDS ORDERED: HYDROCHLOROTHIAZIDE 25 MG TABLET PO SCH (10:00)
[2019-11-12] MEDS ORDERED: POTASSIUM CHLORIDE 10 MEQ TABLET.ER PO SCH (10:00)
[2019-11-12] MEDS: MORPHINE SULFATE 10 MG/ML INJ IV PRN (11:32)
--- NOTE | 2019-11-12 15:14 | PDOC DISCHARGE SUMMARY ---
Impression - Admit/DC Date/PCP Admission Date/Primary Care Provider: 11/06/19 05:47 Discharge Date: 11/12/19 - Additional Information Discharge Diet: As Tolerated, Other (Comments) - Advance diet slowly Discharge Activity: Activity As Tolerated Referrals: [facility] [Outside] - 12/07/19 3:30 pm Prescriptions: Buspirone HCl [Buspar 10 mg Tablet] 5 mg PO Q12 14 Days #28 tablet Carvedilol [Coreg 12.5 mg Tablet] 12.5 mg PO Q12 14 Days #28 tablet Venlafaxine HCl ER [Effexor Xr 37.5 mg Cap.sr] 37.5 mg PO Q12 14 Days #28 cap.sr.24h Hydrochlorothiazide [Hydrodiuril 25 mg Tablet] 25 mg PO DAILY 14 Days #14 tablet Home Medications: Buspirone HCl [Buspar 10 mg Tablet] 5 mg PO Q12 14 Days #28 tablet 11/12/19 Carvedilol [Coreg 12.5 mg Tablet] 12.5 mg PO Q12 14 Days #28 tablet 11/12/19 Famotidine [Pepcid 20 mg Tablet] 20 mg PO Q12 tablet 11/12/19 Folic Acid [Folvite 1 mg Tablet] 1 mg PO DAILY tablet 11/12/19 Hydrochlorothiazide [Hydrodiuril 25 mg Tablet] 25 mg PO DAILY 14 Days #14 tablet 11/12/19 Polyethylene Glycol 3350 [Miralax Powder 17 gm/Packet] 17 gm PO Q12HP PRN powd.pack 11/12/19 Thiamine HCl [Thiamine 100 mg Tablet] 100 mg PO DAILY tablet 11/12/19 Venlafaxine HCl ER [Effexor Xr 37.5 mg Cap.sr] 37.5 mg PO Q12 14 Days #28 cap.sr.24h 11/12/19 History of Present Illiness History of Present Illness: ANUPAMA CAMERON is a 23 year old male Physical Exam Vital Signs: Temp Pulse Resp BP Pulse Ox 98.4 F 83 20 148/90 H 95 11/12/19 11:22 11/12/19 11:22 11/12/19 11:22 11/12/19 11:22 11/12/19 11:22 Intake & Output 11/11/19 11/12/19 11/13/19 06:59 06:59 06:59 Intake Total 3487 2220 240 Output Total 2523 8774 900 Balance 712 -480 -660 Weight 100.2 kg 95.9 kg General appearance: PRESENT: no acute distress, cooperative, well-developed Head exam: PRESENT: atraumatic, normocephalic Ear exam: PRESENT: normal external ear exam. ABSENT: bleeding, drainage Respiratory exam: PRESENT: clear to auscultation darline, symmetrical, unlabored. ABSENT: rales, rhonchi, tachypnea, wheezes Cardiovascular exam: PRESENT: RRR, +S1, +S2, systolic murmur - 2/6 GI/Abdominal exam: PRESENT: normal bowel sounds, soft. ABSENT: distended, guarding, tenderness Rectal exam: PRESENT: deferred Gentrourinary exam: ABSENT: indwelling catheter Extremities exam: ABSENT: pedal edema Musculoskeletal exam: PRESENT: ambulatory, normal inspection Neurological exam: PRESENT: alert, awake, oriented to person, oriented to place, oriented to time, oriented to situation, CN II-XII grossly intact Psychiatric exam: PRESENT: appropriate affect, normal mood. ABSENT: agitated, anxious Focused psych exam: ABSENT: delusional, restlessness Results Laboratory Results: WBC 9.8 10^3/uL (4.0-10.5) 11/11/19 03:58 RBC 4.40 10^6/uL (4.35-5.55) 11/11/19 03:58 Hgb 13.4 g/dL (13.5-17.0) L 11/11/19 03:58 Hct 38.9 % (37.9-51.0) 11/11/19 03:58 MCV 88 fl (80-97) 11/11/19 03:58 MCH 30.4 pg (27.0-33.4) 11/11/19 03:58 MCHC 34.4 g/dL (32.0-36.0) 11/11/19 03:58 RDW 14.1 % (11.5-14.0) H 11/11/19 03:58 Plt Count 230 10^3/uL (150-450) 11/11/19 03:58 Lymph % (Auto) 17.1 % (13-45) 11/10/19 09:37 [place] % (Auto) 16.1 % (3-13) H 11/10/19 09:37 Eos % (Auto) 0.6 % (0-6) 11/10/19 09:37 Baso % (Auto) 0.2 % (0-2) 11/10/19 09:37 Absolute Neuts (auto) 6.9 10^3/uL (1.7-8.2) 11/10/19 09:37 Absolute Lymphs (auto) 1.8 10^3/uL (0.5-4.7) 11/10/19 09:37 Absolute Monos (auto) 1.7 10^3/uL (0.1-1.4) H 11/10/19 09:37 Absolute Eos (auto) 0.1 10^3/uL (0.0-0.6) 11/10/19 09:37 Absolute Basos (auto) 0.0 10^3/uL (0.0-0.2) 11/10/19 09:37 Seg Neutrophils % 66.0 % (42-78) 11/10/19 09:37 PT 14.5 SEC (11.4-15.4) 11/09/19 03:35 INR 1.12 11/09/19 03:35 APTT 35.3 SEC (23.5-35.8) 11/09/19 03:35 Sodium 137.0 mmol/L (137-145) 11/11/19 03:58 Potassium 3.5 mmol/L (3.6-5.0) L 11/11/19 03:58 Chloride 103 mmol/L (98-107) 11/11/19 03:58 Carbon Dioxide 22 mmol/L (22-30) 11/11/19 03:58 Anion Gap 12 (5-19) 11/11/19 03:58 BUN 8 mg/dL (7-20) 11/11/19 03:58 Creatinine 0.54 mg/dL (0.52-1.25) 11/11/19 03:58 Est GFR ( Amer) > 60 (>60) 11/11/19 03:58 Est GFR (MDRD) Non-Af > 60 (>60) 11/11/19 03:58 Glucose 91 mg/dL (75-110) 11/11/19 03:58 Lactic Acid 0.8 mmol/L (0.7-2.1) 11/08/19 04:52 Calcium 9.0 mg/dL (8.4-10.2) 11/11/19 03:58 Phosphorus 4.6 mg/dL (2.5-4.5) H 11/05/19 22:10 Magnesium 2.4 mg/dL (1.6-2.3) H 11/10/19 09:37 Total Bilirubin 1.6 mg/dL (0.2-1.3) H 11/09/19 03:35 Direct Bilirubin 0.7 mg/dL (0.0-0.4) H 11/09/19 03:35 Neonat Total Bilirubin Not Reportable 11/09/19 03:35 Neonat Direct Bilirubin Not Reportable 11/09/19 03:35 Neonat Indirect Bili Not Reportable 11/09/19 03:35 AST 54 U/L (17-59) 11/09/19 03:35 ALT 41 U/L (<50) 11/09/19 03:35 Alkaline Phosphatase 115 U/L (38-126) 11/09/19 03:35 Creatine Kinase 734 U/L (55-170) H 11/05/19 22:10 Total Protein 7.3 g/dL (6.3-8.2) 11/09/19 03:35 Albumin 3.9 g/dL (3.5-5.0) 11/09/19 03:35 Lipase 1777.3 U/L (23-300) H 11/09/19 18:01 Urine Color YELLOW 11/06/19 04:54 Urine Appearance CLEAR 11/06/19 04:54 Urine pH 5.0 (5.0-9.0) 11/06/19 04:54 Ur Specific [place] 1.046 11/06/19 04:54 Urine Protein NEGATIVE mg/dL (NEGATIVE) 11/06/19 04:54 Urine Glucose (UA) NEGATIVE mg/dL (NEGATIVE) 11/06/19 04:54 Urine Ketones 20 mg/dL (NEGATIVE) H 11/06/19 04:54 Urine Blood SMALL (NEGATIVE) H 11/06/19 04:54 Urine Nitrite NEGATIVE (NEGATIVE) 11/06/19 04:54 Urine Bilirubin NEGATIVE (NEGATIVE) 11/06/19 04:54 Urine Urobilinogen NEGATIVE mg/dL (<2.0) 11/06/19 04:54 Ur Leukocyte Esterase NEGATIVE (NEGATIVE) 11/06/19 04:54 Urine WBC (Auto) 0 /HPF 11/06/19 04:54 Urine Mucus (Auto) RARE /LPF 11/06/19 04:54 Urine Ascorbic Acid NEGATIVE (NEGATIVE) 11/06/19 04:54 Urine Opiates Screen UNCONFIRMED POSITIVE 11/06/19 04:54 Urine Methadone Screen NEGATIVE 11/06/19 04:54 Ur Barbiturates Screen NEGATIVE 11/06/19 04:54 Ur Phencyclidine Scrn NEGATIVE 11/06/19 04:54 Ur Amphetamines Screen NEGATIVE 11/06/19 04:54 U Benzodiazepines Scrn NEGATIVE 11/06/19 04:54 Urine Cocaine Screen NEGATIVE 11/06/19 04:54 U Marijuana (THC) Screen NEGATIVE 11/06/19 04:54 Serum Alcohol 184 mg/dL (NONE DETECTED) 11/05/19 22:10 Blood Type O POSITIVE 11/05/19 22:10 Antibody Screen NEGATIVE 11/05/19 22:10 Impressions: Chest X-Ray 11/05/19 21:14 IMPRESSION: 1. No evidence of acute cardiopulmonary disease. 2. Unremarkable bowel gas pattern. KUB X-Ray 11/05/19 21:14 IMPRESSION: 1. No evidence of acute cardiopulmonary disease. 2. Unremarkable bowel gas pattern. Abdomen Ultrasound 11/06/19 02:10 IMPRESSION: Hepatomegaly. Abdomen/Pelvis CT 11/06/19 04:13 IMPRESSION: 1. Findings consistent with acute pancreatitis without definite complication of pancreatitis noted. 2. Fatty infiltration of the liver.
[2019-11-12 15:31] VITALS: BP 142/85
== END 2019-11-12 16:20 | disposition home or self-care (01) | DRG 440 ==
LOC: ER 20:24 → EH 11-06 05:47 → 4N 11-06 13:10
PROVIDERS: ADMIT Internal Medicine; ATTEND Internal Medicine
DX: K85.20 Alcohol induced acute pancreatitis without necrosis or infection (principal); F10.20 Alcohol dependence, uncomplicated; K70.0 Alcoholic fatty liver; F32.9 Major depressive disorder, single episode, unspecified; I10 Essential (primary) hypertension; F17.210 Nicotine dependence, cigarettes, uncomplicated; F12.10 Cannabis abuse, uncomplicated; R00.0 Tachycardia, unspecified; Z63.0 Problems in relationship with spouse or partner
CPT/HCPCS: 36415; 71045; 74018; 74177; 76705; 80048; 80053; 80307; 81001; 82550; 83605; 83690; 83735; 84100; 85025; 85027; 85610; 85730; 86850; 86900; 86901; 87040; 90686; 93005; 93010; 96361; 96374; 96375; 96376; 99285; J0360; J1644; J1885; J2060; J2270; J2405; J3411; J3475; J3490; J7030; J7050; J7120